=== PATIENT | female | born 1955 | race Caucasian/White ===

== ENCOUNTER 2017-05-31 19:30 | Emergency (ER) | payer OTHER ==
[~2017-05-31] VITALS: Ht 160 cm; Wt 49.0 kg
[~2017-05-31 19:30] MED LIST: MOBIC7.5 MG PO; NORCO 5/3251 TABLET PO
[2017-05-31 20:53] VITALS: BP 133/84
== END 2017-05-31 20:56 | disposition home or self-care (01) ==
LOC: EME 19:30
DX: S09.91XA Unspecified injury of ear, initial encounter (principal); Y04.8XXA Assault by other bodily force, initial encounter; F17.200 Nicotine dependence, unspecified, uncomplicated
CPT/HCPCS: 99281; 99284

== ENCOUNTER 2017-08-05 18:56 | Emergency (ER) | payer OTHER ==
[~2017-08-05] VITALS: Ht 160 cm; Wt 47.2 kg
[2017-08-05 21:08] LABS: HEMATOCRIT 42.1 % (36.0-46.0); MCH 30.9 PG (29.0-34.0); MCHC 33.7 G/DL (30.0-36.0); MCV 91.7 FL (83-99); MEAN PLAT.VOLUME 10.7 uM^3 (9.5-12.4); PLATELET COUNT 279 K/uL (156-360); RBC DIS.WIDTH-CV 13.2 % (11.8-14.6); RBC DIS.WIDTH-SD 44.8 % (39-53); RED BLOOD COUNT 4.59 M/uL (3.80-5.20); WHITE BLOOD COUNT 11.3 K/uL (4.1-10.2)
[2017-08-05 21:12] LABS: ADD MIUA? YES; BILIRUBIN NEGATIVE; BLOOD NEGATIVE; COLOR YELLOW ((YELLOW)); GLUCOSE (STRIP) NEGATIVE; KETONES NEGATIVE; LEUKOCYTES SMALL; NITRITE NEGATIVE; PROTEIN (STRIP) NEGATIVE; SPECIFIC GRAVITY 1.015 (1.000-1.030); UROBILINOGEN 0.2 MG/DL (0.2-1.0)
[2017-08-05 21:17] LABS: AMYLASE 42 IU/L (1-118); CHLORIDE 107 mEq/L (99-109); POTASSIUM 3.8 mEq/L (3.7-5.4); SODIUM 139 mEq/L (136-147)
[2017-08-05 21:19] LABS: GLUCOSE 106 mg/dL (70-99)
[2017-08-05 21:19] LABS: BACTERIA NONE SEEN /HPF; EPITHELIAL CELLS RARE /HPF; MUCUS TRACE /LPF; RED BLOOD CELLS 0-5 /HPF (0-5)
[2017-08-05 21:20] LABS: ANION GAP 11 MEQ/L (2-14)
[2017-08-05 21:21] LABS: TOTAL BILIRUBIN 0.5 mg/dL (0.0-1.0)
[2017-08-05 21:22] LABS: ALKALINE PHOSPHATASE 59 IU/L (3-129)
[2017-08-05 21:23] LABS: GFR ESTIMATE (CALCULATED) > 59 mL/min/
[2017-08-05 21:24] LABS: UREA NITROGEN (BUN) 17 mg/dL (9-23)
[2017-08-05 21:26] LABS: LIPASE 38 U/L (1.0-51.0)
[2017-08-05] MEDS ORDERED: LEVAQUIN500 MG PO (23:34)
[2017-08-05] MEDS ORDERED: MOTRIN600 MG PO (23:34)
[2017-08-05] MEDS ORDERED: PERCOCET 5/31 TABLET PO (23:34)
[2017-08-05] MEDS ORDERED: VENTOLIN HFA18 GM IH (23:36)
[2017-08-06 00:03] VITALS: BP 137/58
== END 2017-08-06 00:06 | disposition left against medical advice (07) ==
LOC: EME 18:56
PROVIDERS: Physician Assistant
DX: S22.31XA Fracture of one rib, right side, initial encounter for closed fracture (principal); J18.9 Pneumonia, unspecified organism; S20.211A Contusion of right front wall of thorax, initial encounter; W18.30XA Fall on same level, unspecified, initial encounter; Y93.39 Activity, other involving climbing, rappelling and jumping off; J45.909 Unspecified asthma, uncomplicated; F17.200 Nicotine dependence, unspecified, uncomplicated; Z71.6 Tobacco abuse counseling; F32.9 Major depressive disorder, single episode, unspecified; F41.9 Anxiety disorder, unspecified
CPT/HCPCS: 71020; 74177; 80053; 81003; 82150; 83690; 85027; 99281; 99285; J3010; J7040